=== PATIENT | female | born 1960 | race Caucasian/White ===

== ENCOUNTER 2020-03-30 12:03 | Observation (INO) | payer MEDICARE ==
[~2020-03-30] VITALS: Ht 167.6 cm; Wt 56.4 kg
[2020-03-30 12:21] VITALS: BP 104/70
[2020-03-30] MEDS ORDERED: CHLORHEXIDINE 15 ML UDC ONE (12:28)
[2020-03-30] MEDS ORDERED: CHLORHEXIDINE 15 ML UDC MM ONE ×2 (12:30→13:00)
[2020-03-30] MEDS ORDERED: D5%-0.45% NACL 1,000 ML IV SCH ×2 (12:30→13:00)
[2020-03-30] MEDS ORDERED: TRAZ-175 PO (12:40)
[2020-03-30] MEDS ORDERED: omeprazole PO (12:40)
[2020-03-30] MEDS ORDERED: ventolin (12:40)
[2020-03-30] MEDS ORDERED: OXYC-307 PO (12:40)
[2020-03-30] MEDS ORDERED: CALC667C PO (12:40)
[2020-03-30] MEDS ORDERED: BENLYSTA PO (12:40)
[2020-03-30] MEDS ORDERED: diphenhydramine PO (12:40)
[2020-03-30] MEDS ORDERED: LORA-446 PO (12:40)
[2020-03-30] MEDS ORDERED: zolpidem PO (12:40)
[2020-03-30] MEDS ORDERED: furosemide PO (12:40)
[2020-03-30] MEDS ORDERED: aspirin PO (12:40)
[2020-03-30] MEDS ORDERED: PLEASE ENTER HEIGHT AND WEIGHT MC SCH (13:00)
[2020-03-30] MEDS ORDERED: FENTANYL PF 100 MCG/2ML ONE ×2 (13:15→15:07)
[2020-03-30] MEDS ORDERED: MIDAZOLAM 1 MG/ML, 2ML ONE (13:16)
[2020-03-30] MEDS ORDERED: LIDOCAINE-MPF 1%, 5ML ONE (13:19)
[2020-03-30] MEDS ORDERED: SUGAMMADEX 200 MG/2 ML IVPush ONE (13:19)
[2020-03-30] MEDS ORDERED: LIDOCAINE 4%, 4 ML SYR/CANN TP ONE (13:19)
[2020-03-30 13:36] LABS: BASOPHILS % (AUTO) 1 % (0-1); EOSINOPHILS % (AUTO) 2 % (1-7); LYMPHOCYTES % (AUTO) 39 % (22-44); MEAN CORPUSCULAR HEMOGLOBIN 33.3 pg (27.0-34.8); MEAN CORPUSCULAR HGB CONC 33.3 g/dL (32.4-35.8); MEAN PLATELET VOLUME 7.1 fL (7.4-10.4); MONOCYTES % (AUTO) 12 % (2-9); NEUTROPHILS % (AUTO) 46 % (42-75); PLATELET COUNT 199 x10^3/uL (130-400); RED BLOOD COUNT 3.53 x10^6/uL (3.82-5.3); RED CELL DISTRIBUTION WIDTH 13.6 % (9.6-15.2)
[2020-03-30 13:37] LABS: MD NO
[2020-03-30 13:48] LABS: ALANINE AMINOTRANSFERASE 8 U/L (12-78); ALBUMIN 3.5 g/dL (3.4-5.0); ANION GAP 4 mmol/L (5-15); CALCIUM 8.7 mg/dL (8.5-10.1); CHLORIDE 100 mmol/L (98-107); CREATININE 3.73 mg/dL (0.55-1.02)
[2020-03-30 13:50] LABS: ALKALINE PHOSPHATASE 110 U/L (45-117); BILIRUBIN,TOTAL 0.4 mg/dL (0.2-1.0); TOTAL PROTEIN 7.1 g/dL (6.4-8.2)
[2020-03-30] MEDS ORDERED: OXYcodone 5 MG/5 ML ORAL.SOL UDC PO PRN (14:30)
[2020-03-30] MEDS ORDERED: LABETALOL 5MG/ML, 20ML IV PRN (14:30)
[2020-03-30] MEDS ORDERED: PROMETHAZINE 25 MG/ML, 1ML IVPush PRN (14:30)
[2020-03-30] MEDS ORDERED: PROMETHAZINE 25 MG SUPP PR PRN (14:30)
[2020-03-30] MEDS ORDERED: HYDROmorphone 1 MG/ML, 1ML INJ IVPush PRN (14:30)
[2020-03-30] MEDS ORDERED: ACETAMINOPHEN 325 MG TABLET PO PRN (14:30)
[2020-03-30] MEDS ORDERED: hydrALAzine 20 MG/ML, 1ML IV PRN (14:30)
[2020-03-30] MEDS ORDERED: ONDANSETRON 2MG/ML, 2ML IVPush PRN ×2 (14:30→15:00)
[2020-03-30] MEDS ORDERED: DEXAMETHASONE 4 MG/ML, 1ML ONE (14:57)
[2020-03-30] MEDS ORDERED: NEOSTIGMINE 1 MG/ML, 10ML ONE (14:57)
[2020-03-30] MEDS ORDERED: ONDANSETRON 2MG/ML, 2ML ONE (14:57)
[2020-03-30] MEDS ORDERED: GLYCOPYRROLATE 0.2MG/1ML, 5ML ONE (14:57)
[2020-03-30] MEDS ORDERED: SUCCINYLCHOLINE 20 MG/ML, 10ML ONE (14:57)
[2020-03-30] MEDS ORDERED: PROPOFOL 10 MG/ML, 20ML ONE (14:57)
[2020-03-30] MEDS ORDERED: ROCURONIUM 10MG/ML,5ML ONE (14:57)
[2020-03-30] MEDS ORDERED: CEFAZOLIN 1,000 MG ONE (14:57)
[2020-03-30] MEDS ORDERED: HYDROcodone/APAP 5/325 TABLET PO PRN (15:00)
[2020-03-30] MEDS: FENTANYL PF 100 MCG/2ML IV PRN ×2 (15:10→15:20)
[2020-03-30] MEDS ORDERED: OXYcodone 5 MG/5 ML ORAL.SOL UDC ONE (15:44)
[2020-03-30] MEDS ORDERED: ACETAMINOPHEN 650 MG/20.3 ML UDC ONE (15:44)
[2020-03-30] MEDS ORDERED: SODIUM CHLORIDE FLUSH 10ML SYR IVF SCH (21:00)
== END 2020-03-30 17:10 | disposition home or self-care (01) ==
LOC: OUT 12:03 → ORIP 14:57
PROVIDERS: ADMIT Surgery; ATTEND Surgery
DX: T82.858A Stenosis of other vascular prosthetic devices, implants and grafts, initial encounter (principal); Z20.828 Contact with and (suspected) exposure to other viral communicable diseases; I82.290 Acute embolism and thrombosis of other thoracic veins; I12.0 Hypertensive chronic kidney disease with stage 5 chronic kidney disease or end stage renal disease; N18.6 End stage renal disease; K21.9 Gastro-esophageal reflux disease without esophagitis; F41.9 Anxiety disorder, unspecified; M32.14 Glomerular disease in systemic lupus erythematosus; Z99.2 Dependence on renal dialysis; Z79.899 Other long term (current) drug therapy
CPT/HCPCS: 36415; 36901; 36908; 37248; 71045; 75820; 76937; 80053; 85025; 93005; C1725; C1751; C1769; C1773; C1876; C1894; G0378; J0330; J0690; J1100; J2250; J2405; J2704; J2710; J3010; U0003